=== PATIENT | male | born 1955 | race Caucasian/White ===

== ENCOUNTER 2020-02-13 16:28 | Emergency (ER) | payer BC ==
[2020-02-13] MEDS ORDERED: Aspirin 81 MG Tab.Chew PO ONE (16:52)
[2020-02-13] MEDS ORDERED: HYDROmorphone 0.5 MG/0.5 ML Syringe IVPUSH ONE (16:52)
[2020-02-13] MEDS ORDERED: Metoclopramide 10 MG/2 ML SDV IVPUSH ONE (16:52)
--- NOTE | 2020-02-13 16:56 | EDM.PDOC ---
ED HPI GENERAL MEDICAL PROBLEM - General Chief Complaint: Chest Pain Stated Complaint: CHEST PAIN Time Seen by Provider: 02/13/20 16:40 Source of Information: Reports: Patient History Limitations: Reports: No Limitations - History of Present Illness INITIAL COMMENTS - FREE TEXT/NARRATIVE: 64-year-old male presents to the ED with diffuse left precordial chest pain/discomfort that started about an hour prior to coming to the ED. Patient is originally from [place] and has been out here hunting pheasants. States he never had any chest pain while out walking and hunting today. Essentially sit around this afternoon when he developed diffuse central and precordial chest discomfort that radiates slightly up into his left mandible and into his left arm. Relates the arm sometimes feels somewhat uncomfortable as well as sometimes numb and tingly. No pain radiating to his back. No past history of coronary artery disease. He is a never smoker. Denies cough sputum production fever or chills. Pain did get intense up to a 5 out of 10. Currently it rated as 3 out of 10. No associated diaphoresis nausea or vomiting. A sense of mild shortness of breath. Patient did not appreciate the chest discomfort got any worse with walking in from the parking lot into the hospital. No significant history of GERD and no use of Tums or Rolaids recently. Onset: Today, Sudden Onset Date: 02/13/20 Onset Time: 15:45 Duration: Minutes:, Constant, Improving Location: Reports: Chest (Left precordial chest with slight radiation up into the left mandible and left arm) Quality: Reports: Ache ( medially), Pressure Severity: Moderate Improves with: Reports: None Worsens with: Reports: Rest Context: Denies: Activity, Exercise, Lifting, Sick Contact, Trauma, Other Associated Symptoms: Reports: Chest Pain, Shortness of Breath (Chest pain is made no worse by deep breathing). 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 (see below) (He takes 2 baby aspirin's every morning.) Left Chest Pain Score (Numeric/FACES): 4 - Related Data Allergies Allergy/AdvReac Type Severity Reaction Status Date / Time No Known Allergies Allergy Verified 02/13/20 16:41 Home Meds: Home Meds Ezetimibe [Zetia] 10 mg PO BEDTIME 02/13/20 [History] amLODIPine [Norvasc] 5 mg PO DAILY 02/13/20 [History] atorvaSTATin [Lipitor] 80 mg PO DAILY 02/13/20 [History] carvediloL [Carvedilol] 25 mg PO BID 02/13/20 [History] Past Medical History Cardiovascular History: Reports: High Cholesterol, Hypertension - Infectious Disease History Infectious Disease History: Reports: Novel Coronavirus Social & Family History - Tobacco Use Tobacco Use Status *Q: Never Tobacco User - Recreational Drug Use Recreational Drug Use: No - Living Situation & Occupation Living situation: Reports: Occupation: Employed ED ROS GENERAL - Review of Systems Review Of Systems: See Below Constitutional: Denies: Fever, Chills, Weakness, Fatigue, Decreased Appetite, Weight Loss HEENT: Reports: Glasses Respiratory: Reports: Shortness of Breath. Denies: Wheezing, Pleuritic Chest Pain (Active dyspnea.), Cough, Sputum, Hemoptysis Cardiovascular: Reports: Chest Pain (Precordial chest pressure discomfort see history of present illness), Blood Pressure Problem. Denies: Claudication, Dyspnea on Exertion, Edema, Lightheadedness, Orthopnea, Palpitations Endocrine: Reports: No Symptoms GI/Abdominal: Reports: No Symptoms : Reports: No Symptoms, Other (Nocturia x1 or 2) Musculoskeletal: Reports: Back Pain (Patient no low back discomfort. Occasional neck discomfort.) Skin: Reports: No Symptoms Neurological: Reports: No Symptoms Psychiatric: Reports: No Symptoms Hematologic/Lymphatic: Reports: No Symptoms Immunologic: Reports: No Symptoms ED EXAM, GENERAL - Physical Exam Exam: See Below Exam Limited By: No Limitations General Appearance: Alert, WD/WN, Mild Distress, Other (Appears to be unco mfortable. Temperature is 37.1 heart rate was 71 and sinus on the monitor respiratory to 16 with O2 sats of 99% room air BP 145/86.) Eye Exam: Bilateral Eye: Normal Inspection, PERRL Throat/Mouth: Normal Inspection, Normal Lips, Normal Oropharynx Head: Atraumatic, Normocephalic Neck: Normal Inspection, Supple, Non-Tender, Full Range of Motion. No: Carotid Bruit, Lymphadenopathy (L), Lymphadenopathy (R) Respiratory/Chest: No Respiratory Distress, Lungs Clear, Normal Breath Sounds, No Accessory Muscle Use, Other (Chest pain) Cardiovascular: Normal Peripheral Pulses, Regular Rate, Rhythm, No Edema, No Murmur, No Rub Peripheral Pulses: 2+: Posterior Tibial (L), Posterior Tibial (R), Dorsalis Pedis (L), Dorsalis Pedis (R), 3+: Carotid (L), Carotid (R) GI/Abdominal: Normal Bowel Sounds, Soft, Non-Tender, No Organomegaly, No Abnormal Bruit, No Mass, Pelvis Stable, Other. No: Guarding, Rigid, Rebound, Tender Back Exam: Normal Inspection, Full Range of Motion. No: CVA Tenderness (L), CVA Tenderness (R), Decreased Range of Motion Extremities: Normal Inspection, Normal Range of Motion, Non-Tender, No Pedal Edema, Other (Is are nontender with no suspicion for DVT) Neurological: Alert, Oriented, CN II-XII Intact, Normal Cognition Psychiatric: Anxious, Other (Anxious appears to be in) Skin Exam: Warm, Dry, Intact, Normal Color, No Rash #1 Interpretation EKG Date: 02/13/20 Time: 16:37 Rhythm: NSR Rate (Beats/Min): 65 [place]: LAD-Left [place] Deviation (Mild left axis deviation -8 degrees) P-Wave: Present (Are inverted in leads V1 and V@ nonspecific finding) QRS: Other (Sitter mild left atrial hypertrophy there is a Q wave in V1 and near Q waves in V2 consider old anteroseptal myocardial infarction. Incomplete right bundle branch block) ST-T: Other (ST segment depression in leads V3 to V5 and aVF.. T wave inversion leads III this could represent a nonspecific repolarization abnormality.) QT: Prolonged (Minimally prolonged) EKG Interpretation Comments: Abnormal ECG #2 Interpretation EKG Date: 02/13/20 Time: 18:11 Rhythm: Other Rate (Beats/Min): 43 [place]: LAD-Left [place] Deviation (Minimal left axis deviation -7 degrees) P-Wave: Present (P wave is inverted in V1 unclear etiology) QRS: Other (Q waves V1 and near Q wave V2 suggesting old mai septal myocardial infarction.) ST-T: Other (ST depression V3 to V5 leads ischemia versus repolarization abnormality) QT: Normal EKG Interpretation Comments: Abnormal ECG #3 Interpretation EKG Date: 02/13/20 Time: 20:56 Rhythm: NSR Rate (Beats/Min): 64 [place]: LAD-Left [place] Deviation (Mild left axis deviation -17 degrees) P-Wave: Present (P wave inverted V1 nonspecific) QRS: Other (Q waves V1 and near Q waves V2 suggesting old anteroseptal myocardial infarction) ST-T: Other (Minimal ST segment depression in leads V4, V5, V6 and possibly aVF ischemia versus repolarization abnormality) QT: Normal EKG Interpretation Comments: Abnormal ECG Course - Vital Signs Last Recorded V/S: Last Vital Signs Temp 37.1 C 02/13/20 16:38 Pulse 71 02/13/20 16:38 Resp 16 02/13/20 16:38 BP 145/86 H 02/13/20 16:38 Pulse Ox 99 02/13/20 16:38 - Orders/Labs/Meds Orders: Active Orders 24 hr Category Date Time Status EKG Documentation Completion [RC] ASDIRECTED Care 02/13/20 16:47 Active EKG Documentation Completion [RC] STAT Care 02/13/20 18:06 Active EKG Documentation Completion [RC] STAT Care 02/13/20 20:21 Active Heparin Sodium/D5W [Heparin 25,000 Units in D5W 500 ML] Med 02/13/20 20:45 Active 25,000 units in 500 ml IV TITRATE Nitroglycerin/D5W [Nitroglycerin 25 MG/D5W 250 ML] Med 02/13/20 17:00 Active 25 mg in 250 ml IV TITRATE Sodium Chloride 0.9% [Normal Saline] 1,000 ml Med 02/13/20 17:00 Active IV ASDIRECTED EKG 12 Lead [EK] Stat Ther 02/13/20 16:47 Ordered Medication Orders Sodium Chloride (Normal Saline) 1,000 mls @ 125 mls/hr IV ASDIRECTED GABRIELE Last Admin: 02/13/20 17:13 Dose: 125 mls/hr Documented by: DONNA Nitroglycerin/Dextrose (Nitroglycerin 25 Mg/D5w 250 Ml) 25 mg in 250 mls @ 6 mls/hr IV TITRATE GABRIELE; Protocol Last Admin: 02/13/20 17:13 Dose: 10 mcg/min, 6 mls/hr Documented by: DONNA Heparin Sodium/Dextrose (Heparin 25,000 Units In D5w 500 Ml) 25,000 units in 500 mls @ 23.95 mls/hr IV TITRATE GABRIELE; Protocol Last Admin: 02/13/20 20:50 Dose: 12 units/kg/hr, 23.95 mls/hr Documented by: THEODORE Cosigned by: LAKIA Labs: Laboratory Tests 02/13/20 02/13/20 02/13/20 Range/Units 16:40 16:40 16:40 WBC 11.17 H (4.23-9.07) K/mm3 RBC 6.15 H (4.63-6.08) M/mm3 Hgb 18.8 H (13.7-17.5) gm/dl Hct 52.1 H (40.1-51.0) % MCV 84.7 (79.0-92.2) fl MCH 30.6 (25.7-32.2) pg MCHC 36.1 H (32.2-35.5) g/dl RDW Std Deviation 40.7 (35.1-43.9) fL Plt Count 236 (163-337) K/mm3 MPV 11.6 (9.4-12.3) fl Neut % (Auto) 71.3 H (34.0-67.9) % Lymph % (Auto) 20.9 L (21.8-53.1) % [place] % (Auto) 6.1 (5.3-12.2) % Eos % (Auto) 1.2 (0.8-7.0) Baso % (Auto) 0.2 (0.1-1.2) % Neut # (Auto) 7.97 H (1.78-5.38) K/mm3 Lymph # (Auto) 2.34 (1.32-3.57) K/mm3 [place] # (Auto) 0.68 (0.30-0.82) K/mm3 Eos # (Auto) 0.13 (0.04-0.54) K/mm3 Baso # (Auto) 0.02 (0.01-0.08) K/mm3 Manual Slide Review Normal smear D-Dimer, Quantitative < 0.19 L (0.19-0.50) mg/L Sodium 136 (136-145) mEq/L Potassium 3.4 L (3.5-5.1) mEq/L Chloride 99 (98-107) mEq/L Carbon Dioxide 23 (21-32) mEq/L Anion Gap 17.4 H (5-15) BUN 16 (7-18) mg/dL Creatinine 1.0 (0.7-1.3) mg/dL Est Cr Clr Drug Dosing 77.06 mL/min Estimated GFR (MDRD) > 60 (>60) mL/min BUN/Creatinine Ratio 16.0 (14-18) Glucose 172 H (80-115) mg/dL Calcium 9.7 (8.5-10.1) mg/dL Magnesium (1.8-2.4) mg/dl Total Bilirubin 1.8 H (0.2-1.0) mg/dL AST 32 (15-37) U/L ALT 66 H (16-63) U/L Alkaline Phosphatase 73 (46-116) U/L CK-MB (CK-2) (0-3.6) ng/ml Troponin I < 0.017 (0.00-0.056) ng/mL NT-Pro-B Natriuret Pep (0-125) pg/mL Total Protein 7.8 (6.4-8.2) g/dl Albumin 4.7 (3.4-5.0) g/dl Globulin 3.1 gm/dL Albumin/Globulin Ratio 1.5 (1-2) Lipase (73-393) U/L 02/13/20 02/13/20 02/13/20 Range/Units 16:40 19:29 19:29 WBC (4.23-9.07) K/mm3 RBC (4.63-6.08) M/mm3 Hgb (13.7-17.5) gm/dl Hct (40.1-51.0) % MCV (79.0-92.2) fl MCH (25.7-32.2) pg MCHC (32.2-35.5) g/dl RDW Std Deviation (35.1-43.9) fL Plt Count (163-337) K/mm3 MPV (9.4-12.3) fl Neut % (Auto) (34.0-67.9) % Lymph % (Auto) (21.8-53.1) % [place] % (Auto) (5.3-12.2) % Eos % (Auto) (0.8-7.0) Baso % (Auto) (0.1-1.2) % Neut # (Auto) (1.78-5.38) K/mm3 Lymph # (Auto) (1.32-3.57) K/mm3 [place] # (Auto) (0.30-0.82) K/mm3 Eos # (Auto) (0.04-0.54) K/mm3 Baso # (Auto) (0.01-0.08) K/mm3 Manual Slide Review D-Dimer, Quantitative (0.19-0.50) mg/L Sodium (136-145) mEq/L Potassium (3.5-5.1) mEq/L Chloride (98-107) mEq/L Carbon Dioxide (21-32) mEq/L Anion Gap (5-15) BUN (7-18) mg/dL Creatinine (0.7-1.3) mg/dL Est Cr Clr Drug Dosing mL/min Estimated GFR (MDRD) (>60) mL/min BUN/Creatinine Ratio (14-18) Glucose (80-115) mg/dL Calcium (8.5-10.1) mg/dL Magnesium 1.8 (1.8-2.4) mg/dl Total Bilirubin (0.2-1.0) mg/dL AST (15-37) U/L ALT (16-63) U/L Alkaline Phosphatase (46-116) U/L CK-MB (CK-2) 3.4 34.7 H (0-3.6) ng/ml Troponin I 1.258 H* (0.00-0.056) ng/mL NT-Pro-B Natriuret Pep (0-125) pg/mL Total Protein (6.4-8.2) g/dl Albumin (3.4-5.0) g/dl Globulin gm/dL Albumin/Globulin Ratio (1-2) Lipase 172 (73-393) U/L 12/17/20 Range/Units 19:29 WBC (4.23-9.07) K/mm3 RBC (4.63-6.08) M/mm3 Hgb (13.7-17.5) gm/dl Hct (40.1-51.0) % MCV (79.0-92.2) fl MCH (25.7-32.2) pg MCHC (32.2-35.5) g/dl RDW Std Deviation (35.1-43.9) fL Plt Count (163-337) K/mm3 MPV (9.4-12.3) fl Neut % (Auto) (34.0-67.9) % Lymph % (Auto) (21.8-53.1) % [place] % (Auto) (5.3-12.2) % Eos % (Auto) (0.8-7.0) Baso % (Auto) (0.1-1.2) % Neut # (Auto) (1.78-5.38) K/mm3 Lymph # (Auto) (1.32-3.57) K/mm3 [place] # (Auto) (0.30-0.82) K/mm3 Eos # (Auto) (0.04-0.54) K/mm3 Baso # (Auto) (0.01-0.08) K/mm3 Manual Slide Review D-Dimer, Quantitative (0.19-0.50) mg/L Sodium (136-145) mEq/L Potassium (3.5-5.1) mEq/L Chloride (98-107) mEq/L Carbon Dioxide (21-32) mEq/L Anion Gap (5-15) BUN (7-18) mg/dL Creatinine (0.7-1.3) mg/dL Est Cr Clr Drug Dosing mL/min Estimated GFR (MDRD) (>60) mL/min BUN/Creatinine Ratio (14-18) Glucose (80-115) mg/dL Calcium (8.5-10.1) mg/dL Magnesium (1.8-2.4) mg/dl Total Bilirubin (0.2-1.0) mg/dL AST (15-37) U/L ALT (16-63) U/L Alkaline Phosphatase (46-116) U/L CK-MB (CK-2) (0-3.6) ng/ml Troponin I (0.00-0.056) ng/mL NT-Pro-B Natriuret Pep 75 (0-125) pg/mL Total Protein (6.4-8.2) g/dl Albumin (3.4-5.0) g/dl Globulin gm/dL Albumin/Globulin Ratio (1-2) Lipase (73-393) U/L Meds: Medications Generic Name Dose Route Start Last Admin Trade Name Mikeq PRN Reason Stop Dose Admin Sodium Chloride 1,000 mls @ 125 mls/hr 02/13/20 17:00 02/13/20 17:13 Normal Saline IV 125 mls/hr ASDIRECTED GABRIELE Administration Nitroglycerin/Dextrose 25 mg in 250 mls @ 6 mls/hr 02/13/20 17:00 02/13/20 17:13 Nitroglycerin 25 Mg/D5w 250 Ml IV 10 mcg/min TITRATE GABRIELE 6 mls/hr Administration Protocol 10 MCG/MIN Heparin Sodium/Dextrose 25,000 units in 500 mls @ 23.95 mls/hr 02/13/20 20:45 02/13/20 20:50 Heparin 25,000 Units In D5w 500 Ml IV 12 units/kg/hr TITRATE GABRIELE 23.95 mls/hr Administration Protocol 12 UNITS/KG/HR Discontinued Medications Generic Name Dose Route Start Last Admin Trade Name Emanuel PRN Reason Stop Dose Admin Aspirin 324 mg 02/13/20 16:52 02/13/20 17:07 Aspirin PO 02/13/20 16:53 324 mg ONETIME ONE Administration Heparin Sodium (Porcine) 4,000 units 02/13/20 20:31 02/13/20 20:39 Heparin Sodium IVPUSH 02/13/20 20:32 4,000 units ONETIME ONE Administration Hydromorphone HCl 0.5 mg 02/13/20 16:52 02/13/20 17:11 Dilaudid IVPUSH 02/13/20 16:53 0.5 mg ONETIME ONE Administration Metoclopramide HCl 7.5 mg 02/13/20 16:52 02/13/20 17:09 Reglan IVPUSH 02/13/20 16:53 7.5 mg ONETIME ONE Administration - Radiology Interpretation Free Text/Narrative:: 64-year-old male presents to the ED with a 1 hour history of diffuse left precordial chest discomfort which he describes as a pressure. Perhaps slight radiation into the left mandible and left arm in the medial aspect. Deep breathing does not seem to make it worse. Walking did not seem to make it worse either. Pain was very intense half an hour ago rated as 5-6 out of 10 currently 3 out of 10. No previous similar experiences. No known coronary artery disease. History of hypertension. Never smoker. ECG suggest mild ST segment depression V3 to V5. Also mild ST segment depression in aVF. No specific pattern for an ischemic change. However clinically the patient is sh owing signs symptoms of cardiac ischemia. Plan for baby aspirin chewed. Nitroglycerin drip started at 10 mcg/min. Dilaudid 0.4 mg IV with Reglan 7.5 mg IV for pain relief. Routine labs including cardiac markers to be done. - Re-Assessments/Exams Free Text/Narrative Re-Assessment/Exam: 02/13/20 18:08 Hematology reveals a slightly elevated white count at 11.17. Hemoglobin is 18.8 with hematocrit of 52.1 suggesting moderate hemoconcentration. Platelet counts 236,000. Differential is 71.3% neutrophils D-dimer is normal at less than 0.19. Sodium 136 with a potassium of 3.4. Chloride 99 with a bicarb of 23. Anion gap is elevated at 17.4. BUN is 16 with a creatinine of 1.0 GFR is greater than 60. Glucose is 172 calcium is 9.7 total bilirubin is 1.8 AST 32 with an ALT of 66. Alkaline phosphatase mildly elevated at 73. Troponin I is less than 0.017 total protein 7.8 albumin fraction 4.7. 02/13/20 17:30: Patient reports chest pain is improved and rates it as a 1 out of 10. Feels the Dilaudid helped more than anything. Blood pressure is 125/73. O2 sats of 96%. Heart rate 42 and sinus bradycardia 02/13/20 18:11 second ECG reveals sinus bradycardia at 43/min. P wave remains inverted in lead V1 nonspecific. There are Q waves in V1 and near Q waves in V2 suggestive of an old anteroseptal myocardial infarction. And ST depression V3 to V5 persists ischemia versus report was repolarization abnormality mild left axis deviation of -7 degrees. Patient has some pressure discomfort between his shoulder blades but his chest pain feels much better. Reposition in the bed at this time. Chest x-ray is within normal limits. No pleural effusion and no evidence of diffuse vascular congestion. Cardiac silhouette is normal in size. 02/13/20 18:21 Initial troponin I is less than 0.017. Glucose is mildly elevated 172 I suspect due to stress reaction. Patient will have repeat cardiac markers done at 1930 hrs. 02/13/20 20:49 Second set of cardiac markers are strongly positive. CK-MB has gone from 3.4-34.7. Troponin I initially was less than 0.017 and is now 1.258 ruling in for myocardial infarction. Patient still is having central chest discomfort which he rates as 1 out of 10. He does have some pain in between his shoulder blades suggesting possible inferior wall or circumflex coronary artery involvement. Patient will be given heparin 4000 unit bolus and then 1000 units an hour. Patient will be transferred to [place] cardiology services at [facility] by ground ambulance. 02/13/20 21:10: Second set of cardiac markers have ruled him in for acute myocardial infarction. CK-MB fraction is now 34.7 elevated from initially at 3.4. Troponin I is 1.258 with initial reading of 0.017. Patient will therefore be started on heparin given 4000 unit bolus and then will be started at 1000 unit an hour drip. Chest pain remains 1 out of 10. Blood pressure remains 151/83 with a heart rate of 64 and sinus. O2 sats 99% on room air. 02/13/20 21:20: I have spoke with 1 call nurse at [facility] in [place] after discussing the findings with the patient. I spoke initially with on-call domestic violence advocate Dr. Sauceda then Dr. Martinez--call hospitalist who is accepted care of this patient. He will be transferred to that facility per ground ambulance. Departure - Departure Time of Disposition: 21:35 Disposition: DC/Tfer to Acute Hospital 02 Reason for Transfer *Q: Other Condition: Fair Clinical Impression: Elevated troponin level not due myocardial infarction Acute myocardial infarction Qualifiers: Myocardial infarction type: non-ST elevation myocardial infarction Qualified Code(s): I21.4 - Non-ST elevation (NSTEMI) myocardial infarction Referrals: PCP,Not In Area [Primary Care Provider] - Forms: ED Department Discharge Additional Instructions: Will be transferred to [facility] in [place] per his request per ground ambulance. Sepsis Event Note (ED) - Evaluation Sepsis Screening Result: No Definite Risk - Focused Exam Vital Signs: Vital Signs Temp Pulse Resp BP Pulse Ox 02/13/20 16:38 37.1 C 71 16 145/86 H 99 - My Orders Last 24 Hours: My Active Orders 02/13/20 16:47 EKG Documentation Completion [RC] ASDIRECTED EKG 12 Lead [EK] Stat 02/13/20 17:00 Nitroglycerin/D5W [Nitroglycerin 25 MG/D5W 250 ML] 25 mg in 250 ml IV TITRATE Sodium Chloride 0.9% [Normal Saline] 1,000 ml IV ASDIRECTED 02/13/20 18:06 EKG Documentation Completion [RC] STAT 02/13/20 20:21 EKG Documentation Completion [RC] STAT - Assessment/Plan Last 24 Hours: My Active Orders 02/13/20 16:47 EKG Documentation Completion [RC] ASDIRECTED EKG 12 Lead [EK] Stat 02/13/20 17:00 Nitroglycerin/D5W [Nitroglycerin 25 MG/D5W 250 ML] 25 mg in 250 ml IV TITRATE Sodium Chloride 0.9% [Normal Saline] 1,000 ml IV ASDIRECTED 02/13/20 18:06 EKG Documentation Completion [RC] STAT 02/13/20 20:21 EKG Documentation Completion [RC] STAT
[2020-02-13] MEDS ORDERED: Nitroglycerin/D5W 25 MG/250 ML BOTTLE IV SCH (17:00)
[2020-02-13] MEDS ORDERED: Sodium Chloride 0.9% 1,000 ML IV SCH (17:00)
--- NOTE | 2020-02-13 20:05 | CR ---
Chest: Portable view of the chest was obtained. Comparison: No prior studies available. Slight density within the lateral left costophrenic angle is seen either due to atelectasis or minimal scarring. Lungs otherwise are clear with no acute parenchymal change. Heart size and mediastinum are within normal limits for portable technique. Bony structures show nothing gross. Impression: 1. Minimal scar or atelectasis with lateral left costophrenic angle. 2. Nothing acute is otherwise seen. Diagnostic code #2
[2020-02-13] MEDS ORDERED: Heparin Sodium 5,000 Units/ML Vial IVPUSH ONE (20:31)
[2020-02-13] MEDS ORDERED: Heparin Sodium/D5W 25,000 UNITS/500 ML BAG IV SCH (20:45)
[2020-02-13] MEDS ORDERED: Dextrose 5%-0.9% NaCl with KCl 1,000 ML IV SCH (21:45)
== END 2020-02-13 22:20 ==
LOC: JD.ED 16:28
DX: I21.4 Non-ST elevation (NSTEMI) myocardial infarction (principal); R79.89 Other specified abnormal findings of blood chemistry; E78.00 Pure hypercholesterolemia, unspecified; I10 Essential (primary) hypertension; Z79.899 Other long term (current) drug therapy
CPT/HCPCS: 36415; 71045; 71045-26; 80053; 82553; 83690; 83735; 83880; 84484; 85025; 85379; 93005; 93010; 96365; 96366; 96368; 96375; 99285; 99285-25; A9270-GY; J1170; J1644; J2765; J3490; J7030